=== PATIENT | female | born 1950 | race African-American/Black ===

== ENCOUNTER 2018-09-03 09:57 | Inpatient (IN) ==
[2018-09-03] MEDS ORDERED: ONDANSETRON 4 MG/2 ML VIAL IV PRN (10:20)
[2018-09-03] MEDS ORDERED: ALTEPLASE IV ONE ×2 (10:20)
[2018-09-03] MEDS ORDERED: ALTEPLASE 100 MG/100 ML BOTTLE ONE (10:22)
[2018-09-03 10:33] LABS: Basophils % 0.2 % (0.0-0.8); Eosinophils # 0.4 10*3/uL (0.0-0.87); Eosinophils % 6.2 % (0.00-10.9); Hemoglobin 13.2 GM/DL (12.0-16.0); Immature Granulocytes % 0.3 %; Immature Granulocytes Absolute 0.02 #; Lymphocytes # 1.7 10*3/uL (1.4-4.0); Lymphocytes % 27.4 % (21.3-54.2); Mean Corpuscular HGB Conc 32.2 GM/DL (32-36); Mean Corpuscular Volume 91.5 FL (87-102); Mean Platelet Volume 11.3 FL (9.6-12.0); Monocytes % 6.9 % (1.7-12.7); Platelet Count 265 T/CUMM (130-400); Red Blood Count 4.48 MC/CUMM (3.8-5.5); Red Cell Distribution Width 13.6 % (9.3-17.3); White Blood Count 6.1 T/CUMM (4-12)
[2018-09-03 10:38] LABS: PT Patient Result 11.2 SECS; Partial Thromboplastin Time 22.8 SECS (0-40)
[2018-09-03 10:39] LABS: Alanine Aminotransferase 16 U/L (13-56); Albumin 3.1 G/DL (3.4-5.0); Alkaline Phosphatase 78 U/L (45-117); Aspartate Amino Transferase 16 U/L (0-37); Blood Urea Nitrogen 20 MG/DL (7-18); Calcium 9.2 MG/DL (8.5-10.1); Glucose 165 MG/DL (74-106); Total Protein 7.9 G/DL (6.4-8.3)
[2018-09-03 10:53] LABS: Apearance,Urine CLEAR (Clear); Bilirubin,Urine Negative (Negative); Blood, Urine Negative (Negative); Glucose,Urine (UA) Negative (Negative); Hyaline Casts,Urine 9 /LPF (0-3); Ketones,Urine Negative (Negative); Mucus,Urine Occasional /LPF (Occasional); Nitrite,Urine Negative (Negative); Protein,Urine Negative; RBC,Urine 2 /HPF (0-4); Urine Color Yellow (Yellow); Urine Specific Gravity 1.016 (1.001-1.035); Urine Urobilinogen < 2.0 EU/DL (0.2-1.0); WBC,Urine 1 /HPF (0-6)
[2018-09-03 10:55] LABS: Barbiturates Screen,Urine Negative (Negative); Benzodiazepines Screen,Urine Negative (Negative); Cannabinoid Screen,Urine Negative (Negative); Opiate Screen,Urine Negative (Negative); Phencyclidine Screen,Urine Negative (Negative)
[2018-09-03] MEDS ORDERED: niCARdipine INJ 25 MG in SODIUM CHLORIDE 0.9% 240 ML IV PRN (12:08)
[2018-09-03] MEDS ORDERED: ALBUTEROL 2.5 MG/3 ML NEB RESP TX PRN (12:08)
[2018-09-03] MEDS ORDERED: LABETALOL 20 MG/4 ML SYRINGE IV PRN (12:08)
[2018-09-03] MEDS: SODIUM CHLORIDE 0.45% 1,000 ML IV SCH ×2 (13:40→21:44)
[2018-09-03] MEDS: ROSUVASTATIN 20 MG TABLET PO SCH (21:17)
[2018-09-04] MEDS: SODIUM CHLORIDE 0.45% 1,000 ML IV SCH ×3 (05:44→22:00)
[2018-09-04] MEDS: SOTALOL 80 MG TABLET PO SCH ×2 (10:00→22:11)
[2018-09-04 12:08] LABS: Basophils % 0.3 % (0.0-0.8); Eosinophils # 0.1 10*3/uL (0.0-0.87); Eosinophils % 0.8 % (0.00-10.9); Hematocrit 45.8 VOL% (35.7-47.0); Hemoglobin 14.9 GM/DL (12.0-16.0); Immature Granulocytes % 0.3 %; Immature Granulocytes Absolute 0.03 #; Lymphocytes # 1.8 10*3/uL (1.4-4.0); Mean Corpuscular HGB Conc 32.5 GM/DL (32-36); Mean Corpuscular Volume 90.7 FL (87-102); Mean Platelet Volume 10.9 FL (9.6-12.0); Monocytes % 5.5 % (1.7-12.7); Neutrophils % 75.1 % (38.7-73.9); Platelet Count 273 T/CUMM (130-400); Red Blood Count 5.05 MC/CUMM (3.8-5.5); Red Cell Distribution Width 13.6 % (9.3-17.3); White Blood Count 10.2 T/CUMM (4-12)
[2018-09-04 12:29] LABS: Calcium 9.2 MG/DL (8.5-10.1); Osmolality,Calculated 270.1 MOS/KG (273-304)
[2018-09-04 12:32] LABS: Risk Ratio 3.64; VLDL CHOLESTEROL 19.4 MG/DL
[2018-09-04 12:38] LABS: Thyroid Stimulating Hormone 0.825 uIU/ml (0.358-3.74)
[2018-09-04] MEDS: ASPIRIN CHEW 81 MG TABLET PO SCH (13:30)
[2018-09-04] MEDS: ROSUVASTATIN 20 MG TABLET PO SCH (22:11)
[2018-09-05] MEDS: LEVOTHYROXINE 50 MCG TABLET PO SCH (06:26)
[2018-09-05] MEDS: SODIUM CHLORIDE 0.45% 1,000 ML IV SCH ×4 (06:26→23:22)
[2018-09-05 07:39] LABS: Basophils % 0.2 % (0.0-0.8); Eosinophils # 0.1 10*3/uL (0.0-0.87); Hematocrit 42.6 VOL% (35.7-47.0); Hemoglobin 14.3 GM/DL (12.0-16.0); Immature Granulocytes % 0.5 %; Immature Granulocytes Absolute 0.05 #; Lymphocytes # 1.9 10*3/uL (1.4-4.0); Lymphocytes % 18.5 % (21.3-54.2); Mean Corpuscular HGB Conc 33.6 GM/DL (32-36); Mean Corpuscular Volume 88.2 FL (87-102); Mean Platelet Volume 11.2 FL (9.6-12.0); Neutrophils % 72.8 % (38.7-73.9); Platelet Count 262 T/CUMM (130-400); Red Blood Count 4.83 MC/CUMM (3.8-5.5); Red Cell Distribution Width 13.2 % (9.3-17.3); White Blood Count 10.1 T/CUMM (4-12)
[2018-09-05 08:01] LABS: Calcium 8.5 MG/DL (8.5-10.1); Osmolality,Calculated 261.7 MOS/KG (273-304)
[2018-09-05] MEDS: SOTALOL 80 MG TABLET PO SCH ×2 (09:04→20:55)
[2018-09-05] MEDS: ASPIRIN CHEW 81 MG TABLET PO SCH (09:04)
[2018-09-05] MEDS: ROSUVASTATIN 20 MG TABLET PO SCH (20:55)
[2018-09-06] MEDS: SODIUM CHLORIDE 0.45% 1,000 ML IV SCH ×3 (04:07→14:53)
[2018-09-06 04:54] LABS: Basophils % 0.1 % (0.0-0.8); Eosinophils # 0.1 10*3/uL (0.0-0.87); Eosinophils % 0.9 % (0.00-10.9); Hematocrit 42.4 VOL% (35.7-47.0); Hemoglobin 14.4 GM/DL (12.0-16.0); Immature Granulocytes % 0.3 %; Immature Granulocytes Absolute 0.03 #; Lymphocytes # 2.1 10*3/uL (1.4-4.0); Lymphocytes % 21.4 % (21.3-54.2); Mean Corpuscular Volume 88.7 FL (87-102); Mean Platelet Volume 11.8 FL (9.6-12.0); Monocytes % 8.7 % (1.7-12.7); Neutrophils % 68.6 % (38.7-73.9); Platelet Count 251 T/CUMM (130-400); Red Blood Count 4.78 MC/CUMM (3.8-5.5); Red Cell Distribution Width 13.3 % (9.3-17.3)
[2018-09-06 05:12] LABS: Albumin 2.7 G/DL (3.4-5.0); Bilirubin,Total 0.4 MG/DL (0.2-1.0); Calcium 8.7 MG/DL (8.5-10.1); Total Protein 7.2 G/DL (6.4-8.3)
[2018-09-06] MEDS: LEVOTHYROXINE 50 MCG TABLET PO SCH (06:03)
[2018-09-06] MEDS: ASPIRIN CHEW 81 MG TABLET PO SCH (10:12)
[2018-09-06] MEDS: SOTALOL 80 MG TABLET PO SCH ×2 (10:12→20:39)
[2018-09-06] MEDS: APIXABAN 2.5 MG TABLET PO SCH ×2 (10:12→20:39)
[2018-09-06] MEDS: ROSUVASTATIN 20 MG TABLET PO SCH (20:39)
[2018-09-07] MEDS: SODIUM CHLORIDE 0.45% 1,000 ML IV SCH ×4 (01:18→17:10)
[2018-09-07 05:07] LABS: Basophils % 0.3 % (0.0-0.8); Eosinophils # 0.1 10*3/uL (0.0-0.87); Eosinophils % 1.4 % (0.00-10.9); Hematocrit 41.9 VOL% (35.7-47.0); Hemoglobin 14.1 GM/DL (12.0-16.0); Immature Granulocytes % 0.3 %; Immature Granulocytes Absolute 0.03 #; Lymphocytes # 2.4 10*3/uL (1.4-4.0); Lymphocytes % 26.2 % (21.3-54.2); Mean Corpuscular HGB Conc 33.7 GM/DL (32-36); Mean Corpuscular Volume 88.2 FL (87-102); Mean Platelet Volume 12.1 FL (9.6-12.0); Monocytes % 9.7 % (1.7-12.7); Neutrophils % 62.1 % (38.7-73.9); Platelet Count 235 T/CUMM (130-400); Red Blood Count 4.75 MC/CUMM (3.8-5.5); Red Cell Distribution Width 13.3 % (9.3-17.3); White Blood Count 9.3 T/CUMM (4-12)
[2018-09-07 05:23] LABS: Albumin 2.6 G/DL (3.4-5.0); Calcium 8.6 MG/DL (8.5-10.1); Osmolality,Calculated 270.1 MOS/KG (273-304); Total Protein 7.2 G/DL (6.4-8.3)
[2018-09-07] MEDS: LEVOTHYROXINE 50 MCG TABLET PO SCH (06:14)
[2018-09-07] MEDS: APIXABAN 2.5 MG TABLET PO SCH ×2 (08:44→20:47)
[2018-09-07] MEDS: ASPIRIN CHEW 81 MG TABLET PO SCH (08:44)
[2018-09-07] MEDS: SOTALOL 80 MG TABLET PO SCH ×2 (08:44→20:47)
[2018-09-07] MEDS: hydroCHLOROthiazide 12.5 MG CAPSULE PO SCH (08:45)
[2018-09-07] MEDS: ROSUVASTATIN 20 MG TABLET PO SCH (20:47)
[2018-09-07] MEDS ORDERED: amLODIPine 10 MG TABLET PO SCH (21:00)
[2018-09-08] MEDS: SODIUM CHLORIDE 0.45% 1,000 ML IV SCH ×2 (00:45→12:41)
[2018-09-08 05:11] LABS: Basophils % 0.3 % (0.0-0.8); Eosinophils # 0.3 10*3/uL (0.0-0.87); Eosinophils % 3.3 % (0.00-10.9); Hematocrit 40.2 VOL% (35.7-47.0); Hemoglobin 13.3 GM/DL (12.0-16.0); Immature Granulocytes % 0.4 %; Immature Granulocytes Absolute 0.03 #; Lymphocytes # 1.8 10*3/uL (1.4-4.0); Lymphocytes % 23.1 % (21.3-54.2); Mean Corpuscular HGB Conc 33.1 GM/DL (32-36); Mean Corpuscular Volume 89.7 FL (87-102); Mean Platelet Volume 11.8 FL (9.6-12.0); Monocytes % 11.8 % (1.7-12.7); Neutrophils % 61.1 % (38.7-73.9); Platelet Count 216 T/CUMM (130-400); Red Blood Count 4.48 MC/CUMM (3.8-5.5); Red Cell Distribution Width 13.3 % (9.3-17.3); White Blood Count 7.9 T/CUMM (4-12)
[2018-09-08 05:19] LABS: Albumin 2.3 G/DL (3.4-5.0); Bilirubin,Total 0.5 MG/DL (0.2-1.0); Calcium 8.2 MG/DL (8.5-10.1); Osmolality,Calculated 264.5 MOS/KG (273-304)
[2018-09-08] MEDS: LEVOTHYROXINE 50 MCG TABLET PO SCH (06:02)
[2018-09-08] MEDS: hydroCHLOROthiazide 12.5 MG CAPSULE PO SCH (09:38)
[2018-09-08] MEDS: APIXABAN 2.5 MG TABLET PO SCH (09:38)
[2018-09-08] MEDS: SOTALOL 80 MG TABLET PO SCH (09:38)
[2018-09-08] MEDS: ASPIRIN CHEW 81 MG TABLET PO SCH (09:38)
[2018-09-08 12:22] VITALS: BP 114/68
== END 2018-09-08 14:32 | DRG 62 ==
LOC: EDUNIT# → N.ED 09:57 → N.EDINP 12:08 → N.ICU 12:31 → N.4E 09-06 18:03
PROVIDERS: ADMIT Family Medicine; ATTEND Family Medicine

== ENCOUNTER 2018-10-01 09:17 | Inpatient (IN) ==
[2018-10-01] MEDS ORDERED: PANTOPRAZOLE 40 MG VIAL IV STA (09:40)
[2018-10-01] MEDS ORDERED: ONDANSETRON 4 MG/2 ML VIAL IV STA (09:40)
[2018-10-01] MEDS ORDERED: SODIUM CHLORIDE 0.9% 1,000 ML IV STA (09:40)
[2018-10-01 10:00] LABS: Basophils % 0.3 % (0.0-0.8); Eosinophils # 0.3 10*3/uL (0.0-0.87); Eosinophils % 4.1 % (0.00-10.9); Hematocrit 40.1 VOL% (35.7-47.0); Immature Granulocytes % 0.3 %; Immature Granulocytes Absolute 0.02 #; Lymphocytes # 1.7 10*3/uL (1.4-4.0); Lymphocytes % 27.6 % (21.3-54.2); Mean Corpuscular HGB Conc 32.4 GM/DL (32-36); Mean Corpuscular Volume 89.5 FL (87-102); Mean Platelet Volume 10.6 FL (9.6-12.0); Neutrophils % 56.7 % (38.7-73.9); Platelet Count 226 T/CUMM (130-400); Red Blood Count 4.48 MC/CUMM (3.8-5.5); Red Cell Distribution Width 13.3 % (9.3-17.3); White Blood Count 6.3 T/CUMM (4-12)
[2018-10-01 10:19] LABS: INR 1.1; PT Patient Result 11.4 SECS; Partial Thromboplastin Time 24.7 SECS (0-40)
[2018-10-01 10:25] LABS: Alanine Aminotransferase 18 U/L (13-56); Albumin 2.5 G/DL (3.4-5.0); Alkaline Phosphatase 85 U/L (45-117); Aspartate Amino Transferase 26 U/L (0-37); Blood Urea Nitrogen 13 MG/DL (7-18); Calcium 9.3 MG/DL (8.5-10.1); Glucose 126 MG/DL (74-106); Osmolality,Calculated 274.8 MOS/KG (273-304); Total Protein 7.5 G/DL (6.4-8.3); Troponin I < 0.015 NG/ML (0.00-0.045)
[2018-10-01 10:32] LABS: Amorphous Crystals,Urine Occasional /HPF (Few); Apearance,Urine Slightly Hazy (Clear); Bilirubin,Urine Negative (Negative); Blood, Urine Small mg/dL (Negative); Glucose,Urine (UA) Negative (Negative); Ketones,Urine Negative (Negative); Mucus,Urine Occasional /LPF (Occasional); Nitrite,Urine Positive (Negative); Protein,Urine Negative; RBC,Urine 2 /HPF (0-4); Squamous Epithelial Cell,Urine Occasional /HPF (0-10); Urine Color Yellow (Yellow); Urine Specific Gravity 1.017 (1.001-1.035); WBC,Urine 2 /HPF (0-6)
[2018-10-01] MEDS ORDERED: AMPICILLIN/SULBACTAM 3,000 MG in SODIUM CHLORIDE 0.9% 100 ML IV STA (10:36)
[2018-10-01] MEDS ORDERED: metroNIDAZOLE INJ 500 MG in PREMIX 1 EACH IV STA (10:59)
[2018-10-01] MEDS ORDERED: ONDANSETRON 4 MG/2 ML VIAL IV PRN (11:45)
[2018-10-01] MEDS ORDERED: fentaNYL 100 MCG/2 ML VIAL IV STA (11:50)
[2018-10-01] MEDS: metroNIDAZOLE INJ 500 MG in PREMIX 1 EACH IV SCH ×3 (12:00→23:45)
[2018-10-01] MEDS ORDERED: PNEUMOCOCCAL VACCINE (13 VALENT) 0.5 ML SYRINGE IM ONE (14:47)
[2018-10-01] MEDS ORDERED: guaiFENesin 200 MG/10 ML UDCUP PO PRN (15:31)
[2018-10-01] MEDS ORDERED: MAGNESIUM HYDROXIDE SUSP 30 ML UDCUP PO PRN (15:31)
[2018-10-01] MEDS ORDERED: BISACODYL 10 MG SUPP RECTAL PRN (15:31)
[2018-10-01] MEDS ORDERED: BISACODYL 5 MG TABLET PO PRN (15:31)
[2018-10-01 15:32] LABS: Basophils % 0.3 % (0.0-0.8); Eosinophils # 0.2 10*3/uL (0.0-0.87); Eosinophils % 3.6 % (0.00-10.9); Hematocrit 39.2 VOL% (35.7-47.0); Hemoglobin 12.7 GM/DL (12.0-16.0); Immature Granulocytes % 0.3 %; Immature Granulocytes Absolute 0.02 #; Lymphocytes # 1.9 10*3/uL (1.4-4.0); Lymphocytes % 29.3 % (21.3-54.2); Mean Corpuscular HGB Conc 32.4 GM/DL (32-36); Mean Corpuscular Volume 89.9 FL (87-102); Mean Platelet Volume 10.5 FL (9.6-12.0); Monocytes % 12.4 % (1.7-12.7); Neutrophils % 54.1 % (38.7-73.9); Platelet Count 225 T/CUMM (130-400); Red Blood Count 4.36 MC/CUMM (3.8-5.5); Red Cell Distribution Width 13.2 % (9.3-17.3); White Blood Count 6.4 T/CUMM (4-12)
[2018-10-01] MEDS: NYSTATIN 500,000 UNIT/5 ML UDCUP PO SCH ×2 (16:33→20:22)
[2018-10-01] MEDS: DICYCLOMINE 20 MG TABLET PO SCH ×2 (16:33→20:22)
[2018-10-01] MEDS: cefTRIAXone 500 MG in SYRINGE 1 EACH IV SCH (16:39)
[2018-10-01] MEDS ORDERED: SODIUM CHLORIDE 0.9% 1,000 ML IV PRN (17:52)
[2018-10-01] MEDS ORDERED: FUROSEMIDE 20 MG/2 ML VIAL IV PRN (17:52)
[2018-10-01 18:18] LABS: Hematocrit 41.2 VOL% (35.7-47.0); Hemoglobin 12.8 GM/DL (12.0-16.0)
[2018-10-01] MEDS: SOTALOL 80 MG TABLET PO SCH (20:22)
[2018-10-01] MEDS: PANTOPRAZOLE 40 MG TABLET PO SCH (20:22)
[2018-10-01] MEDS: NYSTATIN POWDER 15 GM BOTTLE TOP SCH (20:30)
[2018-10-02] MEDS: LEVOTHYROXINE 50 MCG TABLET PO SCH (05:57)
[2018-10-02] MEDS: metroNIDAZOLE INJ 500 MG in PREMIX 1 EACH IV SCH ×3 (05:57→17:21)
[2018-10-02 05:58] LABS: Basophils % 0.3 % (0.0-0.8); Eosinophils # 0.3 10*3/uL (0.0-0.87); Eosinophils % 4.3 % (0.00-10.9); Hematocrit 39.1 VOL% (35.7-47.0); Hematocrit 39.4 VOL% (35.7-47.0); Hemoglobin 12.7 GM/DL (12.0-16.0); Immature Granulocytes % 0.2 %; Immature Granulocytes Absolute 0.01 #; Lymphocytes # 1.8 10*3/uL (1.4-4.0); Lymphocytes % 29.3 % (21.3-54.2); Mean Corpuscular HGB Conc 33.2 GM/DL (32-36); Mean Corpuscular Volume 88.3 FL (87-102); Mean Platelet Volume 10.8 FL (9.6-12.0); Monocytes % 10.5 % (1.7-12.7); Neutrophils % 55.4 % (38.7-73.9); Platelet Count 217 T/CUMM (130-400); Red Blood Count 4.43 MC/CUMM (3.8-5.5); Red Cell Distribution Width 13.5 % (9.3-17.3); White Blood Count 6.2 T/CUMM (4-12)
[2018-10-02 06:25] LABS: Calcium 9.1 MG/DL (8.5-10.1); Osmolality,Calculated 275.7 MOS/KG (273-304)
[2018-10-02] MEDS ORDERED: LEVOTHYROXINE 50 MCG TABLET PO SCH (07:00)
[2018-10-02] MEDS: amLODIPine 10 MG TABLET PO SCH (08:50)
[2018-10-02] MEDS: NYSTATIN 500,000 UNIT/5 ML UDCUP PO SCH ×4 (08:51→21:58)
[2018-10-02] MEDS: PANTOPRAZOLE 40 MG TABLET PO SCH ×2 (08:51→21:57)
[2018-10-02] MEDS ORDERED: PANTOPRAZOLE 40 MG TABLET PO SCH (09:00)
[2018-10-02] MEDS: DICYCLOMINE 20 MG TABLET PO SCH ×3 (09:07→21:58)
[2018-10-02] MEDS: ASPIRIN 325 MG TABLET PO SCH (09:07)
[2018-10-02] MEDS: SOTALOL 80 MG TABLET PO SCH ×2 (09:08→21:57)
[2018-10-02] MEDS: NYSTATIN POWDER 15 GM BOTTLE TOP SCH ×2 (09:09→21:58)
[2018-10-02] MEDS: FLUTICASONE 50 MCG NASAL SPRAY 16 GM BOTTLE BOTH NARES SCH (09:09)
[2018-10-02] MEDS: cefTRIAXone 500 MG in SYRINGE 1 EACH IV SCH (16:11)
[2018-10-02 19:13] LABS: Hemoglobin 12.5 GM/DL (12.0-16.0)
[2018-10-03] MEDS: metroNIDAZOLE INJ 500 MG in PREMIX 1 EACH IV SCH ×3 (00:20→12:16)
[2018-10-03 05:15] LABS: Basophils % 0.2 % (0.0-0.8); Eosinophils # 0.3 10*3/uL (0.0-0.87); Eosinophils % 4.1 % (0.00-10.9); Hemoglobin 12.5 GM/DL (12.0-16.0); Immature Granulocytes % 0.2 %; Immature Granulocytes Absolute 0.01 #; Lymphocytes # 1.7 10*3/uL (1.4-4.0); Lymphocytes % 25.8 % (21.3-54.2); Mean Corpuscular HGB Conc 32.9 GM/DL (32-36); Mean Platelet Volume 11.4 FL (9.6-12.0); Monocytes % 11.1 % (1.7-12.7); Neutrophils % 58.6 % (38.7-73.9); Platelet Count 215 T/CUMM (130-400); Red Blood Count 4.27 MC/CUMM (3.8-5.5); Red Cell Distribution Width 13.3 % (9.3-17.3); White Blood Count 6.6 T/CUMM (4-12)
[2018-10-03 05:41] LABS: Calcium 9.1 MG/DL (8.5-10.1); Osmolality,Calculated 280.4 MOS/KG (273-304)
[2018-10-03] MEDS: LEVOTHYROXINE 50 MCG TABLET PO SCH (06:28)
[2018-10-03] MEDS ORDERED: ASPIRIN CHEW 81 MG TABLET PO ONE (09:50)
[2018-10-03] MEDS: NYSTATIN 500,000 UNIT/5 ML UDCUP PO SCH ×4 (10:03→21:51)
[2018-10-03] MEDS: FLUTICASONE 50 MCG NASAL SPRAY 16 GM BOTTLE BOTH NARES SCH (10:04)
[2018-10-03] MEDS: NYSTATIN POWDER 15 GM BOTTLE TOP SCH ×2 (10:04→21:52)
[2018-10-03] MEDS: SOTALOL 80 MG TABLET PO SCH ×2 (11:12→21:51)
[2018-10-03] MEDS: DICYCLOMINE 20 MG TABLET PO SCH ×3 (11:12→21:52)
[2018-10-03] MEDS: amLODIPine 10 MG TABLET PO SCH (11:13)
[2018-10-03] MEDS: PANTOPRAZOLE 40 MG TABLET PO SCH ×2 (11:13→21:52)
[2018-10-03] MEDS: ASPIRIN CHEW 81 MG TABLET PO SCH (11:13)
[2018-10-03] MEDS: ASPIRIN 325 MG TABLET PO SCH (12:06)
[2018-10-03] MEDS: cefTRIAXone 500 MG in SYRINGE 1 EACH IV SCH (16:07)
[2018-10-03] MEDS: traMADol 50 MG TABLET PO PRN (18:15)
[2018-10-04] MEDS: metroNIDAZOLE INJ 500 MG in PREMIX 1 EACH IV SCH ×3 (02:21→07:08)
[2018-10-04 06:34] LABS: Basophils % 0.1 % (0.0-0.8); Eosinophils # 0.2 10*3/uL (0.0-0.87); Eosinophils % 2.6 % (0.00-10.9); Hematocrit 37.2 VOL% (35.7-47.0); Hemoglobin 12.4 GM/DL (12.0-16.0); Immature Granulocytes % 0.3 %; Immature Granulocytes Absolute 0.02 #; Lymphocytes # 1.8 10*3/uL (1.4-4.0); Lymphocytes % 24.7 % (21.3-54.2); Mean Corpuscular HGB Conc 33.3 GM/DL (32-36); Mean Corpuscular Volume 88.6 FL (87-102); Mean Platelet Volume 11.3 FL (9.6-12.0); Monocytes % 11.7 % (1.7-12.7); Neutrophils % 60.6 % (38.7-73.9); Platelet Count 209 T/CUMM (130-400); Red Cell Distribution Width 13.2 % (9.3-17.3); White Blood Count 7.3 T/CUMM (4-12)
[2018-10-04] MEDS: LEVOTHYROXINE 50 MCG TABLET PO SCH (07:08)
[2018-10-04] MEDS ORDERED: ONDANSETRON 4 MG TABLET PO PRN (08:07)
[2018-10-04] MEDS ORDERED: ALUMINUM/MAGNES/SIMETH MAX STR 30 ML UDCUP PO PRN (08:07)
[2018-10-04] MEDS ORDERED: ACETAMINOPHEN 325 MG TABLET PO PRN (08:07)
[2018-10-04] MEDS ORDERED: SULFAMETHOX/TRIMETHOPRIM 800-160 MG TABLET PO SCH (09:00)
[2018-10-04] MEDS ORDERED: SOTALOL 80 MG TABLET PO SCH (09:00)
[2018-10-04] MEDS: ASPIRIN CHEW 81 MG TABLET PO SCH (09:24)
[2018-10-04] MEDS: NYSTATIN 500,000 UNIT/5 ML UDCUP PO SCH ×2 (09:25→13:05)
[2018-10-04] MEDS: NYSTATIN POWDER 15 GM BOTTLE TOP SCH (09:25)
[2018-10-04] MEDS: PANTOPRAZOLE 40 MG TABLET PO SCH (09:25)
[2018-10-04] MEDS: FLUTICASONE 50 MCG NASAL SPRAY 16 GM BOTTLE BOTH NARES SCH (09:25)
[2018-10-04] MEDS: amLODIPine 10 MG TABLET PO SCH (09:25)
[2018-10-04] MEDS: SOTALOL 80 MG TABLET PO SCH (09:26)
[2018-10-04] MEDS: DICYCLOMINE 20 MG TABLET PO SCH (09:33)
[2018-10-04] MEDS: traMADol 50 MG TABLET PO PRN (09:33)
[2018-10-04 11:59] VITALS: BP 119/67
[2018-10-04] MEDS ORDERED: ROSUVASTATIN 20 MG TABLET PO SCH (21:00)
== END 2018-10-04 12:25 | DRG 813 ==
LOC: EDUNIT# → EDBD → N.ED 09:17 → N.EDINP 11:44 → N.TELEN 13:00
PROVIDERS: ADMIT Family Medicine; ATTEND Family Medicine

== ENCOUNTER 2019-04-14 05:40 | Inpatient (IN) ==
[2019-04-14] MEDS ORDERED: SODIUM CHLORIDE 0.9% 500 ML IV STA (06:08)
[2019-04-14] MEDS ORDERED: SODIUM CHLORIDE 0.9% 1,000 ML IV STA (06:09)
[2019-04-14] MEDS ORDERED: PANTOPRAZOLE 40 MG VIAL IV STA (06:13)
[2019-04-14 06:41] LABS: PT Patient Result 21.8 SECS (9.6-12.2)
[2019-04-14 07:43] LABS: Albumin 1.4 G/DL (3.4-5.0); Bilirubin,Total 0.7 MG/DL (0.2-1.0); Osmolality,Calculated 286.7 MOS/KG (273-304); Total Protein 4.1 G/DL (6.4-8.3)
[2019-04-14 07:44] LABS: Calcium 5.6 MG/DL (8.5-10.1)
[2019-04-14] MEDS ORDERED: DEXTROSE 50% 25 GM/50 ML VIAL IV STA (08:00)
[2019-04-14] MEDS ORDERED: POTASSIUM CHLORIDE 20 MEQ TABLET PO STA (08:00)
[2019-04-14] MEDS ORDERED: POTASSIUM CHLORIDE INJ 20 MEQ in SODIUM CHLORIDE 0.45% 1,000 ML IV SCH (08:30)
[2019-04-14] MEDS ORDERED: DEXTROSE 50% 25 GM/50 ML SYRINGE IV ONE (08:44)
[2019-04-14] MEDS ORDERED: SOTALOL 80 MG TABLET PO SCH (09:00)
[2019-04-14] MEDS ORDERED: SODIUM CHLORIDE 0.9% 1,000 ML IV SCH (09:00)
[2019-04-14] MEDS ORDERED: ACETAMINOPHEN 325 MG TABLET PO PRN (09:00)
[2019-04-14] MEDS ORDERED: ONDANSETRON 4 MG/2 ML VIAL IV PRN (09:00)
[2019-04-14] MEDS ORDERED: FLUTICASONE 50 MCG NASAL SPRAY 16 GM BOTTLE BOTH NARES SCH (09:00)
[2019-04-14] MEDS ORDERED: DICYCLOMINE 20 MG TABLET PO SCH (09:00)
[2019-04-14] MEDS ORDERED: PANTOPRAZOLE 40 MG TABLET PO SCH (09:00)
[2019-04-14 09:12] VITALS: BP 139/72
[2019-04-14] MEDS ORDERED: POTASSIUM CHLORIDE RIDER 100 ML IV ONE (10:10)
[2019-04-14] MEDS ORDERED: SODIUM CHLORIDE 0.9% 1,000 ML IV ONE ×2 (10:15→10:30)
[2019-04-14] MEDS: POTASSIUM CHLORIDE RIDER 10 MEQ in PREMIX 1 EACH IV SCH ×3 (10:44→11:54)
[2019-04-14] MEDS ORDERED: PHENYLEPHRINE DRIP 40 MG/250 ML PREMIX IV ONE (10:46)
[2019-04-14] MEDS ORDERED: DEXTROSE 10% 250 ML BAG IV PRN (11:20)
[2019-04-14] MEDS ORDERED: PHENYLEPHRINE DRIP 40 MG/250 ML PREMIX IV PRN (11:23)
[2019-04-14] MEDS: MORPHINE 4 MG/1 ML VIAL IV PRN ×2 (11:39→12:05)
[2019-04-14] MEDS ORDERED: LORazepam 2 MG/1 ML VIAL IV PRN (11:45)
[2019-04-14] MEDS ORDERED: LORazepam 2 MG/1 ML VIAL ONE (11:47)
[2019-04-14] MEDS ORDERED: ROSUVASTATIN 20 MG TABLET PO SCH (21:00)
[2019-04-14] MEDS ORDERED: SERTRALINE 50 MG TABLET PO SCH (21:00)
[2019-04-15] MEDS ORDERED: LEVOTHYROXINE 50 MCG TABLET PO SCH (06:30)
[2019-04-15] MEDS ORDERED: DOCUSATE SODIUM 100 MG CAPSULE PO SCH (09:00)
== END 2019-04-14 12:30 | disposition expired | DRG 377 ==
LOC: EDUNIT# → EDBD → N.ED 05:40 → N.EDINP 06:13 → N.2E 09:17 → N.ICU 10:29
PROVIDERS: ADMIT Family Medicine; ATTEND Family Medicine